=== PATIENT | female | born 2000 | race Caucasian/White ===

== ENCOUNTER 2022-07-10 00:15 | Emergency (ER) | payer OTHER ==
[~2022-07-10] VITALS: Ht 165.1 cm; Wt 40.8 kg
[2022-07-10 00:33] VITALS: BP 114/63
--- NOTE | 2022-07-10 01:42 | NUR ---
PT TO BED 5
--- NOTE | 2022-07-10 01:50 | NUR ---
Dr. Jimenez at bedside examining pt.
--- NOTE | 2022-07-10 02:10 | NUR ---
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 Rates left arm pain 7/10 non-radiating. no visible trauma noted. pt A&Ox4. Skin intact. VSS. NKA. No known medical conditions. Bed in lowest position.
[2022-07-10] MEDS ORDERED: IBUPROFEN 800 MG TAB PO ONE (02:20)
--- NOTE | 2022-07-10 02:25 | NUR ---
X-Ray at bedside.
[2022-07-10] MEDS ORDERED: IBUP-2213 PO (03:27)
[2022-07-10 03:50] VITALS: BP 115/76
--- NOTE | 2022-07-10 03:50 | NUR ---
Patient discharged with v/s stable. Written and verbal after care instructions given and explained. Patient verbalized understanding. Ambulatory with steady gait. All questions addressed prior to discharge. Advised to follow up with PMD.
== END 2022-07-10 03:50 | disposition home or self-care (01) ==
LOC: MED 00:15
DX: S63.92XA Sprain of unspecified part of left wrist and hand, initial encounter (principal); X58.XXXA Exposure to other specified factors, initial encounter; Y93.89 Activity, other specified; Y92.89 Other specified places as the place of occurrence of the external cause; Y99.8 Other external cause status
CPT/HCPCS: 73090; 73110; 99284; Q0092